=== PATIENT | male | born 1985 | race Caucasian/White ===

== ENCOUNTER 2020-10-04 16:06 | Emergency (ER) | payer OTHER ==
--- NOTE | 2020-10-04 16:21 | ED.PDOC ---
History of Present Illness - General Time Seen by Provider: 10/04/20 16:07 Source: patient, RN notes reviewed, Vital Signs reviewed Additional Information: 35 year-old male presenting with police and he is under arrest, patient is here for COVID-19 testing before going to retirement, patient said that 14 days ago he was tested positive for COVID-19, he retested on Sunday and allegedly he was positive and he was told he had pneumonia, but no treatment was given to him, jeffry whitman does not any distress has been coughing but denies any chest pain denies any respiratory distress, the office tells me that if he is positive the will not take him to rn military tells me and known COVID-19 patients in [facility] - History of Present Illness Timing/Duration: other - 2 weeks Improving Factors: nothing Worsening Factors: nothing Associated Symptoms: denies symptoms, cough Allergies/Adverse Reactions: Allergies Amoxicillin Allergy (Verified 10/04/20 16:32) Penicillins Allergy (Verified 10/04/20 16:32) Home Medications: Ambulatory Orders Benzonatate Perles [Tessalon Perles] 10 mg PO TID 7 Days cap 10/04/20 Review of Systems - Review of Systems Constitutional: States: no symptoms reported EENTM: States: no symptoms reported Respiratory: States: cough Cardiology: States: no symptoms reported Gastrointestinal/Abdominal: States: no symptoms reported Genitourinary: States: no symptoms reported Musculoskeletal: States: no symptoms reported Skin: States: no symptoms reported Neurological: States: no symptoms reported Endocrine: States: no symptoms reported Hematologic/Lymphatic: States: no symptoms reported Family Medical History - Family History Mother Family History: Unknown Living Status: Unknown Physical Exam - Physical Exam General Appearance: Well Developed, Well Groomed, Well Hydrated, Well Nourished Eye Exam: bilateral normal Ears, Nose, Throat: hearing grossly normal, normal ENT inspection, normal pharynx Neck: non-tender, full range of motion, supple, normal inspection, carotid bruit Respiratory: chest non-tender, lungs clear, normal breath sounds, no respiratory distress, no accessory muscle use, respiratory distress Cardiovascular/Chest: normal peripheral pulses, regular rate, rhythm, no edema, no gallop, no JVD, no murmur Peripheral Pulses: radial,right: 2+, radial,left: 2+ Gastrointestinal/Abdominal: normal bowel sounds, non tender, soft, no organomegaly, no pulsatile mass Extremity: normal range of motion, non-tender, normal inspection, no pedal edema, no calf tenderness 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 His chest x-ray did not show evidence of pneumonia patient is not hypoxic tachycardic no chest pain no respiratory distress he was COVID-19 negative, it seems like patient is not contagious and even though he tested positive on Sunday today he is negative he is asymptomatic except for a mild cough, and has been 14 days and he is being di agnosed with the first time, so patient is medically cleared for retirement 10/04/20 17:07 Departure - Departure Clinical Impression: Medical clearance for incarceration, Cough Disposition: Discharge to Home or Self Care Condition: Fair Instructions: Cough in Adults Diet: resume usual diet Referrals: Gume Rinaldi MD [Primary Care Provider] - 1-2 Weeks Prescriptions: Benzonatate Perles [Tessalon Perles] 10 mg PO TID 7 Days cap Home Medications: Ambulatory Orders Benzonatate Perles [Tessalon Perles] 10 mg PO TID 7 Days cap 10/04/20
--- NOTE | 2020-10-04 16:40 | RAD ---
EXAM DESCRIPTION: Chest,1 View CLINICAL HISTORY: 35 years Male, cough COMPARISON: None. TECHNIQUE: AP portable chest. FINDINGS: Heart size is normal with normal pulmonary vascularity. No consolidating infiltrate. No pulmonary mass or worrisome nodule. No pneumothorax or pleural effusion. Bones are unremarkable. IMPRESSION: No acute process is identified in the chest. 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
[2020-10-04 17:29] VITALS: BP 156/109; TEMP 98.3; O2SAT 98
== END 2020-10-04 17:20 | disposition home or self-care (01) ==
LOC: ER 16:06
DX: R05 Cough (principal); Z20.828 Contact with and (suspected) exposure to other viral communicable diseases; Z87.01 Personal history of pneumonia (recurrent); Z88.1 Allergy status to other antibiotic agents